=== PATIENT | male | born 1975 | race Caucasian/White ===

== ENCOUNTER → 2021-11-20 | Outpatient (CLI) | payer OTHER ==
--- NOTE | 2021-11-20 16:12 | MR ---
EXAMINATION TYPE: MR shoulder RT wo con DATE OF EXAM: 11/20/2021 COMPARISON: None HISTORY: Pain right shoulder, unsp injury of muscle and tendons of rotator cuff, muscle weakness, ost eoarthritis Multiplanar multiecho imaging of the right shoulder with no contrast. The glenoid lita appear intact. Subscapularis tendon is intact biceps tendon is intact. Scapula is i ntact. No evidence of fracture. There is small area of focal 1 cm edema in the humeral head at the gr eater tuberosity. There are small tear in the anterior aspect of the supraspinatus tendon at the grea ter tuberosity of the humerus. The AC joint is intact. No significant subacromial impingement. The in fraspinatus tendon is intact. IMPRESSION: There is a small full-thickness tear in the anterior aspect of the supraspinatus tendon. A small area of bone bruise in the greater tuberosity of the humerus. Minute shoulder joint effusion.
== END | disposition home or self-care (01) ==
LOC: RADMRIMAIN 11:41
PROVIDERS: ATTEND Orthopaedic Surgery
DX: M25.511 Pain in right shoulder (principal); S46.001D Unspecified injury of muscle(s) and tendon(s) of the rotator cuff of right shoulder, subsequent encounter; M54.12 Radiculopathy, cervical region; M62.81 Muscle weakness (generalized); M19.011 Primary osteoarthritis, right shoulder; Y99.9 Unspecified external cause status